=== PATIENT | female | born 1975 | race Caucasian/White ===

== ENCOUNTER 2020-02-24 19:22 | Observation (INO) ==
[2020-02-24] MEDS ORDERED: ONDANSETRON INJ 2 MG/ML 2 ML VIAL IV STA (19:48)
[2020-02-24] MEDS ORDERED: SODIUM CHLORIDE 0.9% 1000ML 1,000 ML IV ONE (19:48)
[2020-02-24] MEDS ORDERED: MoRPHine SULFATE 4 MG/ML 1 ML CARP\\VIAL IV STA (19:48)
[2020-02-24 19:57] LABS: Basophils # (auto) 0.03 K/uL (0-0.2); Basophils % (auto) 0.2 %; Eosinophils # (auto) 0.21 K/uL (0-0.5); Eosinophils % (auto) 1.5 %; Hematocrit (blood only) 37.8 % (37-47); Hemoglobin 11.8 g/dL (12.0-16.0); Immature Granulocytes # (auto) 0.02 K/uL (0.00-0.02); Immature Granulocytes % (auto) 0.1 %; Lymphocytes # (auto) 2.57 K/uL (1.2-3.4); Lymphocytes % (auto) 18.5 %; Mean Corpuscular Hemoglobin 25.1 pg (25-34); Mean Corpuscular Hgb Conc 31.2 g/dL (32-36); Mean Corpuscular Volume 80.3 fL (80-100); Mean Platelet Volume 9.5 fL (7.4-10.4); Monocytes # (auto) 0.67 K/uL (0.11-0.59); Monocytes % (auto) 4.8 %; Neutrophils # (auto) 10.36 K/uL (1.4-6.5); Neutrophils % (auto) 74.9 %; Platelet Count 447 K/uL (130-400); RDW Coefficient of Variation 15.6 % (11.5-14.5); RDW Standard Deviation 45.2 fL (36.4-46.3); Red Blood Count 4.71 M/uL (4.2-5.4); White Blood Count 13.86 K/uL (4.8-10.8)
[2020-02-24 20:18] LABS: Pregnancy Test, Serum Negative (Negative)
[2020-02-24 20:24] LABS: Appearance Urine Clear (Clear); Bilirubin Urine Negative (Negative); Blood Urine Negative (Negative); Color Urine Yellow; Glucose Urine UA Negative (Negative); Ketones Urine Negative (Negative); Leukocyte Esterase Urine Negative (Negative); Nitrite Urine Negative (Negative); Protein Urine Negative (Negative); Specific Gravity Urine 1.015 (1.000-1.030); Urobilinogen Urine Negative (Negative)
[2020-02-24 20:25] LABS: Albumin Level 3.4 gm/dl (3.4-5.0); BUN Creatinine Ratio 17.4 (10-20); Calcium 9.1 mg/dl (8.5-10.1); Creatinine Clr Calc Pharmacy 64.6 ml/min; Est GFR (African American) 84.3; Est GFR (Non-African American) 72.8; Potassium 4.3 mmol/L (3.5-5.1)
[2020-02-24 20:27] LABS: Albumin Globulin Ratio 0.9 (0.9-2); Bilirubin,Total 0.3 mg/dl (0.2-1); Total Protein 7.4 gm/dl (6.4-8.2)
--- NOTE | 2020-02-24 20:41 | CT Scan Report ---
CT OF THE ABDOMEN AND PELVIS WITHOUT CONTRAST CLINICAL HISTORY: Left flank pain. COMPARISON STUDY: CT of the abdomen and pelvis June 19, 2018. TECHNIQUE: Axial images of the abdomen and pelvis were obtained without IV contrast. Images were revi ewed in the axial, sagittal, and coronal planes. Automated exposure control was utilized for the yue dy. A dose lowering technique was utilized adhering to the principles of ALARA. FINDINGS: Lung bases are unremarkable. No renal, ureteral or bladder calculi are present. Pelvic calc ifications likely reflect phleboliths. There is no hydronephrosis or hydroureter. No perinephric infi ltration. Evaluation of the remainder of the abdomen and pelvis suboptimal on this unenhanced exam. T he liver, spleen, adrenal glands and pancreas are unremarkable. There is no biliary or pancreatic margo marilyn dilatation. The appendix is normal. There is no evidence for a bowel obstruction. A moderate amou nt stool within the colon is noted. There is no lymphadenopathy or ascites. There are no suspicious o sseous lesions. The ovaries are not enlarged. Apparent mild infiltration of the labia is unchanged. T his is of doubtful significance. IMPRESSION: 1. No urinary calculi or hydronephrosis. 2. No acute process within the abdomen or pelvis on unenhanced exam. 3. No bowel obstruction. Normal appendix. 4. Moderate amount of stool within the colon. ACT 112: Negative or not required by law. Electronically signed by: Brendan Lux M.D. 02/24/2020 8:39 PM
[2020-02-24] MEDS ORDERED: PROMETHAZINE 25 MG/51 ML BAG IV STA (21:23)
--- NOTE | 2020-02-24 21:30 | Emergency Department Note ---
History of Present Illness General Chief complaint: Flank Pain Stated complaint: LEFT FLANK PAIN Time Seen by Provider: 02/24/20 19:30 History of Present Illness Maximum Pain Intensity: 4 This patient is a 44-year-old female who presents emergency department complaining of a sharp, stabbing sensation in the left flank that started 2 days ago. The pain has been constant. It does not radiate anywhere. It is worse with movement. She has not tried anything [id number] for pain. She does note nausea with several episodes of vomiting today. She does however say that she has had intermittent vomiting over the last 2 months. She saw her primary care physician, who recommended that she come to the emergency department, which she did not do. No changes in bowel movements. No urinary symptoms. Last menstrual cycle was earlier this month. It was reportedly normal. She denies any vaginal discharge. Home Medications Home Medications Medication Instructions Recorded Confirmed Type baclofen 10 mg PO TID PRN 06/19/18 02/24/20 History quetiapine [Seroquel] 200 mg PO QPM 06/19/18 02/24/20 History albuterol sulfate 2 puff INHALATION Q4 PRN 11/19/18 02/24/20 History azelastine 1 spray INTRANASAL BID 11/19/18 02/24/20 History deutetrabenazine [Austedo] 12 mg PO BID 11/19/18 02/24/20 History dextroamphetamine-amphetamine 10 mg PO BID 11/19/18 02/24/20 History [Adderall] ibuprofen 600 mg PO TID PRN 11/19/18 02/24/20 History levocetirizine [Xyzal] 5 mg PO QPM 11/19/18 02/24/20 History levothyroxine [Synthroid] 50 mcg PO DAILY 11/19/18 02/24/20 History lorazepam [Ativan] 0.5 mg PO TID PRN 11/19/18 02/24/20 History ondansetron HCl 4 mg PO TID PRN 11/19/18 02/24/20 History rizatriptan [Maxalt] 10 mg PO UD PRN 11/19/18 02/24/20 History dextroamphetamine-amphetamine 20 mg PO QAM 02/24/20 02/24/20 History [Adderall] lithium carbonate 300 mg PO TID 02/24/20 02/24/20 History pregabalin [Lyrica] 100 mg PO TID 02/24/20 02/24/20 History quetiapine [Seroquel] 50 mg PO DAILY PRN 02/24/20 02/24/20 History Allergies Allergy/AdvReac Type Severity Reaction Status Date / Time No Known Allergies Allergy Verified 02/24/20 20:45 Past Med/Surg History Medical History Asthma Attention deficit disorder Chronic neck pain Tardive dyskinesia Surgical History History of cervical spinal surgery Status post tubal ligation Social History Smoking Status: Former smoker Smoking End Date: 2007; Hx Alcohol Use: No Hx Substance Use: No Preferred Language: Portuguese Communication Ability: Effective Visual Impairment: No Limitations Hearing Ability: Normal Subcontract Administrator Required: No Beliefs That Will Affect Care: None marital status: Current Living Situation: Spouse current occupational status: employed Feels Safe at Home: Yes Safety Concerns: Feels Safe At This Time Assistive Devices: Contacts Review of Systems A total of 10 systems reviewed and were otherwise negative Physical Exam Vital Signs Vital Signs - 24 hr 02/24/20 19:23 02/24/20 21:04 02/24/20 22:03 Temperature 36.4 C L Temperature Source Oral Pulse Rate 97 H Pulse Rate [Right Finger] 82 77 Pulse Rhythm [Right Finger] Pulse Strength [Right Finger] Respiratory Rate 20 16 18 Respiratory Effort / Characteristics Non-Labored Spontaneous Non-Labored Spontaneous Non-Labored Spontaneous Respiratory Depth Normal Normal Normal Respiratory Pattern Regular Regular Blood Pressure 129/87 Blood Pressure [Left Arm] 130/107 H 143/85 H Blood Pressure Mean 101 Blood Pressure Mean [Left Arm] 114 104 Blood Pressure Position [Left Arm] Lying Lying Pulse Oximetry 98 99 100 Oxygen Delivery Method Room Air Room Air Room Air Sepsis New/Unexplained Change in Mental Status N/A Sepsis Action Taken by Nursing No Action Required 02/25/20 00:00 Temperature Temperature Source Pulse Rate Pulse Rate [Right Finger] 95 H Pulse Rhythm [Right Finger] Regular Pulse Strength [Right Finger] Normal Respiratory Rate 18 Respiratory Effort / Characteristics Non-Labored Spontaneous Respiratory Depth Normal Respiratory Pattern Regular Blood Pressure Blood Pressure [Left Arm] 119/74 Blood Pressure Mean Blood Pressure Mean [Left Arm] 89 Blood Pressure Position [Left Arm] Lying Pulse Oximetry 97 Oxygen Delivery Method Room Air Sepsis New/Unexplained Change in Mental Status Sepsis Action Taken by Nursing Constitutional WD/WN, vitals as above Eyes EOM intact bilaterally ENMT external ear and nose normal, oropharynx normal Neck trachea midline Respiratory normal respiratory effort, lungs clear to auscultation Cardiovascular RRR, no murmur, no edema Gastrointestinal (Abdomen) Bowel sounds present in all 4 quadrants. Left-sided CVA tenderness noted. Mild tenderness to palpation in the right upper quadrant. No guarding or rebound tenderness noted. Musculoskeletal no cyanosis or clubbing, extremities motor strength 5/5 Skin no rashes, warm and dry Neurologic Alert and oriented x3. No focal motor deficits. Psychiatric Acting appropriately Course Course Patient was seen and examined Vital signs including blood pressure were reviewed medications list was verified with patient Labs were obtained, and a saline lock was established Medications and imaging were ordered I was notified by the RN that the patient was still having nausea. She was ordered another round of antiemetics. Upon reevaluation, the patient's nausea was better. Unfortunately, her pain was starting to come back. We discussed her results. She voiced understanding. She was ordered more pain medication. She was still having pain. The hospitalist service was consulted for possible inpatient management Consultations Consultation #[facility]: [facility] Administered Medications Amphetamine/Dextroamphetamine (Amphetamine Asp/Sulf/Dextramph 20 Mg Tab) 20 mg PO QAM [facility] Stop: 03/10/20 08:59 Last Admin: 02/25/20 09:26 Dose: 20 mg Documented by: [id number] Dextrose/Lactated Ringer's (D5w And Lactated Ringers) 1,000 mls @ 75 mls/hr IV .[id number] [facility] Stop: 03/26/20 01:20 Last Admin: 02/25/20 01:44 Dose: 75 mls/hr Documented by: [id number] Levothyroxine Sodium (Levothyroxine Sodium 50 Mcg Tablet) 50 mcg PO DAILYBB [facility] Stop: 03/26/20 06:29 Last Admin: 02/25/20 06:02 Dose: Not Given Documented by: [id number] Ventana Carbonate (Ventana Carbonate 300 Mg Tab) 300 mg PO TID [facility] Stop: 03/26/20 08:59 Last Admin: 02/25/20 09:26 Dose: 300 mg Documented by: [id number] Miscellaneous (Azelastine~Order Awaiting Action) 1 ea N/A QS [facility] Stop: 03/26/20 07:59 Last Admin: 02/25/20 09:26 Dose: Not Given Documented by: [id number] Miscellaneous (Austedo~Order Awaiting Action) 1 ea N/A QS [facility] Stop: 03/26/20 07:59 Last Admin: 02/25/20 09:26 Dose: Not Given Documented by: [id number] Miscellaneous (Xyzal~Order Awaiting Action) 1 ea N/A QS [facility] Stop: 03/26/20 07:59 Last Admin: 02/25/20 09:26 Dose: Not Given Documented by: [id number] Oxycodone HCl (Oxycodone Hcl Ir 5 Mg Tab (Immediate Release)) 5 - 10 mg PO QID PRN PRN Reason: Pain Stop: 03/10/20 01:20 Last Admin: 02/25/20 08:10 Dose: 10 mg Documented by: [id number] Pregabalin (Pregabalin 100 Mg Cap) 100 mg PO TID [facility] Stop: 03/26/20 08:59 Last Admin: 02/25/20 09:26 Dose: 100 mg Documented by: [id number] Discontinued Medications Hydromorphone HCl (Hydromorphone Inj 0.5 Mg/0.5 Ml Syr) 0.5 mg IV NOW STA Stop: 02/24/20 23:13 Last Admin: 02/24/20 23:25 Dose: 0.5 mg Documented by: [id number] Sodium Chloride (Nss 1000ml) 1,000 mls @ 999 mls/hr IV .Q1H1M ONE Stop: 02/24/20 20:48 Last Infusion: 02/24/20 21:02 Dose: 0 mls/hr Documented by: [id number] Admin: 02/24/20 20:09 Dose: 999 mls/hr Documented by: [id number] Promethazine HCl (Phenergan) 25 mg in 51 mls @ 204 mls/hr IV NOW STA Stop: 02/24/20 21:37 Last Infusion: 10/13/20 22:14 Dose: 0 mls/hr Documented by: [id number] Admin: 02/24/20 21:57 Dose: 204 mls/hr Documented by: [id number] Ketorolac Tromethamine (Ketorolac Tromethamine 15 Mg/Ml Vial) 15 mg IV NOW STA Stop: 02/25/20 00:35 Last Admin: 02/25/20 01:08 Dose: 15 mg Documented by: [id number] Morphine Sulfate (Morphine Sulfate 4 Mg/Ml 1 Ml Carp\Vial) 4 mg IV NOW STA Stop: 02/24/20 19:49 Last Admin: 02/24/20 20:14 Dose: 4 mg Documented by: [id number] Ondansetron HCl (Ondansetron Inj 2 Mg/Ml 2 Ml Vial) 4 mg IV NOW STA Stop: 02/24/20 19:49 Last Admin: 02/24/20 20:14 Dose: 4 mg Documented by: [id number] Medical Decision Making Medical Records Attestation: I reviewed the patient's medical records. Home Medications Current Medication List: was personally reviewed by me Laboratory Data Attestation: I reviewed the patient's lab results. Result diagrams: 02/25/20 06:48 02/25/20 05:30 Lab Results 02/24/20 02/24/20 02/24/20 Range/Units 19:39 19:39 19:39 WBC 13.86 H (4.8-10.8) K/uL RBC 4.71 (4.2-5.4) M/uL Hgb 11.8 L (12.0-16.0) g/dL Hct 37.8 (37-47) % MCV 80.3 (80-100) fL MCH 25.1 (25-34) pg MCHC 31.2 L (32-36) g/dL RDW Std Deviation 45.2 (36.4-46.3) fL RDW Coeff of Gennaro 15.6 H (11.5-14.5) % Plt Count 447 H (130-400) K/uL MPV 9.5 (7.4-10.4) fL Immature Gran % (Auto) 0.1 % Neut % (Auto) 74.9 % Lymph % (Auto) 18.5 % [place] % (Auto) 4.8 % Eos % (Auto) 1.5 % Baso % (Auto) 0.2 % Neut # (Auto) 10.36 H (1.4-6.5) K/uL Lymph # (Auto) 2.57 (1.2-3.4) K/uL [place] # (Auto) 0.67 H (0.11-0.59) K/uL Eos # (Auto) 0.21 (0-0.5) K/uL Baso # (Auto) 0.03 (0-0.2) K/uL Immature Gran # (Auto) 0.02 (0.00-0.02) K/uL Sodium 139 (136-145) mmol/L Potassium 4.3 (3.5-5.1) mmol/L Chloride 107 (98-107) mmol/L Carbon Dioxide 28 (21-32) mmol/L Anion Gap 4.0 (3-11) BUN 16 (7-18) mg/dl Creatinine 0.94 (0.6-1.2) mg/dl Est Cr Clr Drug Dosing 64.6 ml/min Est GFR ( Amer) 84.3 Est GFR (Non-Af Amer) 72.8 BUN/Creatinine Ratio 17.4 (10-20) Glucose 81 (70-99) mg/dl Calcium 9.1 (8.5-10.1) mg/dl Total Bilirubin 0.3 (0.2-1) mg/dl AST 12 L (15-37) U/L ALT 12 (12-78) U/L Alkaline Phosphatase 69 (45-117) U/L Total Creatine Kinase 52 (26-192) U/L Total Protein 7.4 (6.4-8.2) gm/dl Albumin 3.4 (3.4-5.0) gm/dl Globulin 4.0 (2.5-4.0) gm/dl Albumin/Globulin Ratio 0.9 (0.9-2) Lipase 181 (73-393) U/L TSH 9.300 H (0.300-4.500) uIu/ml HCG, Qual Negative (Negative) Urine Color Urine Appearance (Clear) Urine pH (4.5-7.5) Ur Specific [place] (1.000-1.030) Urine Protein (Negative) Urine Glucose (UA) (Negative) Urine Ketones (Negative) Urine Blood (Negative) Urine Nitrite (Negative) Urine Bilirubin (Negative) Urine Urobilinogen (Negative) Ur Leukocyte Esterase (Negative) 02/24/20 Range/Units 19:39 WBC (4.8-10.8) K/uL RBC (4.2-5.4) M/uL Hgb (12.0-16.0) g/dL Hct (37-47) % MCV (80-100) fL MCH (25-34) pg MCHC (32-36) g/dL RDW Std Deviation (36.4-46.3) fL RDW Coeff of Gennaro (11.5-14.5) % Plt Count (130-400) K/uL MPV (7.4-10.4) fL Immature Gran % (Auto) % Neut % (Auto) % Lymph % (Auto) % [place] % (Auto) % Eos % (Auto) % Baso % (Auto) % Neut # (Auto) (1.4-6.5) K/uL Lymph # (Auto) (1.2-3.4) K/uL [place] # (Auto) (0.11-0.59) K/uL Eos # (Auto) (0-0.5) K/uL Baso # (Auto) (0-0.2) K/uL Immature Gran # (Auto) (0.00-0.02) K/uL Sodium (136-145) mmol/L Potassium (3.5-5.1) mmol/L Chloride (98-107) mmol/L Carbon Dioxide (21-32) mmol/L Anion Gap (3-11) BUN (7-18) mg/dl Creatinine (0.6-1.2) mg/dl Est Cr Clr Drug Dosing ml/min Est GFR ( Amer) Est GFR (Non-Af Amer) BUN/Creatinine Ratio (10-20) Glucose (70-99) mg/dl Calcium (8.5-10.1) mg/dl Total Bilirubin (0.2-1) mg/dl AST (15-37) U/L ALT (12-78) U/L Alkaline Phosphatase (45-117) U/L Total Creatine Kinase (26-192) U/L Total Protein (6.4-8.2) gm/dl Albumin (3.4-5.0) gm/dl Globulin (2.5-4.0) gm/dl Albumin/Globulin Ratio (0.9-2) Lipase (73-393) U/L TSH (0.300-4.500) uIu/ml HCG, Qual (Negative) Urine Color Yellow Urine Appearance Clear (Clear) Urine pH 8.0 H (4.5-7.5) Ur Specific [place] 1.015 (1.000-1.030) Urine Protein Negative (Negative) Urine Glucose (UA) Negative (Negative) Urine Ketones Negative (Negative) Urine Blood Negative (Negative) Urine Nitrite Negative (Negative) Urine Bilirubin Negative (Negative) Urine Urobilinogen Negative (Negative) Ur Leukocyte Esterase Negative (Negative) Imaging Data Attestation: I personally reviewed and interpreted this imaging study as follows: Radiologist's Impression: CT abdomen and pelvis without contrast IMPRESSION: 1. No urinary calculi or hydronephrosis. 2. No acute process within the abdomen or pelvis on unenhanced exam. 3. No bowel obstruction. Normal appendix. 4. Moderate amount of stool within the colon. ACT 112: Negative or not required by law. Electronically signed by: Brendan Lux M.D. 02/24/2020 8:39 PM Dictated: 02/24/202033 Transcribed: 02/24/202033 Ultrasound gallbladder Per stat rad preliminary findings: Mild gallbladder sludge. No definite gallstones. No gallbladder wall thickening or pericholecystic fluid. No sonographic Tubbs sign. Common bile duct measures 4 mm. The right kidney is unremarkable. No hydronephrosis. MDM Narrative Differential diagnosis: Ureteral stone, UTI, pyelonephritis, musculoskeletal pain, gallbladder pathology, bowel obstruction, pancreatitis, gastritis, ovarian cyst, ectopic , among others were considered This pt is a 44 y/o female that presents to the ED with flank pain, abdominal pain, nausea and vomiting. On exam, VSS. She had L flank tenderness and also some RUQ tenderness. She has been having on and off nausea after eating for a few weeks. Labs show mild leukocytosis. LFTs and lipase normal. CT of the abdomen/pelvis was performed to rule out uretal stone and pylenephritis. No acute findings. US of the gallbladder also performed. Preliminary read shows sludge, but no stones or signs of cholecystitis. I was not able to adequately control the patient's pain after multiple doses of narcotics, which prompted hospitalist consult for further evaluation. Impression & Plan Flank Pain, RUQ pain, Vomiting Discharge Plan Visit Data Chief Complaint: Flank Pain Stated Complaint: LEFT FLANK PAIN ED Provider: Adryan Maurer ED Midlevel Provider: Barbara Bruce Discharge Problem: Flank Pain, RUQ pain, Vomiting Patient Disposition: Admitted As Inpatient Discharge Instructions Interventions: ED Discharge Assessment Last Done: 02/25/20 01:04
[2020-02-24] MEDS ORDERED: HYDROmorphone INJ 0.5 MG/0.5 ML SYR IV STA (23:12)
--- NOTE | 2020-02-25 00:30 | History & Physical Report ---
Date of Service February 25, 2020 Assessment & Plan (1) RUQ pain: Persistent discomfort the last 2 weeks Possible biliary colic No sepsis for now New onset left flank pain Possible muscular strain mood disorder, at baseline hypothyroidism, TSH slightly elevated tardive dyskinesia as per records chronic anemia, hemoglobin at baseline past tobacco abuse OBS GMF Analgesia General Surgery consult RE RUQ pain possible biliary colic N.p.o. until patient seen by surgery in a.m. DVT prophylaxis. SCDs RE possible procedure Full code Patient's requesting update providers. Mr. Fermín Durán, contact #[phone]. Text document was generated using [employer] voice recognition software. It may contain grammatical or spelling errors. Kindly contact undersigned for clarification of any documentation item in question. History of Present Illness Chief Complaint: Left flank pain Primary Care Provider: Bean Rivera History obtained from patient, family, and records. Medical history significant for mood disorder, hypothyroidism, unspecified convulsions, tardive dyskinesia, hyperlipidemia as per records, chronic anemia (baseline globin 10-11), past tobacco abuse. Last confinement 2012 under [facility] for elective neck surgery. 2 weeks history of achy right upper quadrant pain symptoms associated with emesis worse with meals, No chest pain, no S OB. No fever, no chills. PCP recommended ER consultation given concern for cholecystitis but patient held off. Intermittent discomfort the last 2 weeks. 2 days ago patient noted aching left flank pain symptoms. No recollection of recent trauma. Persistent right upper quadrant pain. Patient brought to ER for evaluation by . Medical History as above Surgical History : Left shoulder surgery, neck surgery, hysteroscopy, BTL, nerve decompression, oophorectomy Family History : Heart disease, mood disorder, alcoholism Personal/Social history : Past tobacco abuse, no EtOH intake, homemaker Allergies Allergy/AdvReac Type Severity Reaction Status Date / Time No Known Allergies Allergy Verified 02/24/20 20:45 Home Medications Home Medications Medication Instructions Recorded Confirmed Type baclofen 10 mg PO TID PRN 06/19/18 02/24/20 History quetiapine [Seroquel] 200 mg PO QPM 06/19/18 02/24/20 History albuterol sulfate 2 puff INHALATION Q4 PRN 11/19/18 02/24/20 History azelastine 1 spray INTRANASAL BID 11/19/18 02/24/20 History deutetrabenazine [Austedo] 12 mg PO BID 11/19/18 02/24/20 History dextroamphetamine-amphetamine 10 mg PO BID 11/19/18 02/24/20 History [Adderall] ibuprofen 600 mg PO TID PRN 11/19/18 02/24/20 History levocetirizine [Xyzal] 5 mg PO QPM 11/19/18 02/24/20 History levothyroxine [Synthroid] 50 mcg PO DAILY 11/19/18 02/24/20 History lorazepam [Ativan] 0.5 mg PO TID PRN 11/19/18 02/24/20 History ondansetron HCl 4 mg PO TID PRN 11/19/18 02/24/20 History rizatriptan [Maxalt] 10 mg PO UD PRN 11/19/18 02/24/20 History dextroamphetamine-amphetamine 20 mg PO QAM 02/24/20 02/24/20 History [Adderall] lithium carbonate 300 mg PO TID 02/24/20 02/24/20 History pregabalin [Lyrica] 100 mg PO TID 02/24/20 02/24/20 History quetiapine [Seroquel] 50 mg PO DAILY PRN 02/24/20 02/24/20 History Past Med/Surg History Medical History Asthma Attention deficit disorder Chronic neck pain Tardive dyskinesia Surgical History History of cervical spinal surgery Status post tubal ligation Social History Smoking Status: Former smoker Smoking End Date: 2007; Hx Alcohol Use: No Hx Substance Use: No Preferred Language: Albanian Communication Ability: Effective Visual Impairment: No Limitations Hearing Ability: Normal Manager Of Compensation Required: No Beliefs That Will Affect Care: None marital status: Current Living Situation: Spouse current occupational status: employed Feels Safe at Home: Yes Safety Concerns: Feels Safe At This Time Assistive Devices: Contacts Review of Systems Review of Systems: As per HPI, all 10 systems reviewed, all other ROS negative Physical Exam Physical Exam: GENERAL: uncomfortable, restless, involuntary truncal movements, no respiratory distress SKIN: Pallor , warm HEENT: Pale palpebral conjunctivae, no ptosis, dry buccal mucosa NECK : Supple, no tenderness CHEST : CTA, no tenderness HEART : RRR, no obvious murmurs ABDOMEN: Some distention, right upper quadrant tenderness BACK : Left flank tenderness EXTREMITIES : No LE swelling/tenderness, no other conspicuous deformities noted NEUROLOGIC : Coherent, no facial asymmetry, involuntary truncal movements, no other gross focality Results & Data Results & Data ([facility]) Vital Signs (Past 12 Hours) Vital Signs Temp Pulse Pulse Resp BP BP Pulse Ox 02/24/20 22:03 77 18 143/85 H 100 02/24/20 21:04 82 16 130/107 H 99 02/24/20 19:23 36.4 C L 97 H 20 129/87 98 Laboratory Results Laboratory Results WBC 13.86 K/uL (4.8-10.8) H 02/24/20 19:39 RBC 4.71 M/uL (4.2-5.4) 02/24/20 19:39 Hgb 11.8 g/dL (12.0-16.0) L 02/24/20 19:39 Hct 37.8 % (37-47) 02/24/20 19:39 MCV 80.3 fL (80-100) 02/24/20 19:39 MCH 25.1 pg (25-34) 02/24/20 19:39 MCHC 31.2 g/dL (32-36) L 02/24/20 19:39 RDW Std Deviation 45.2 fL (36.4-46.3) 02/24/20 19:39 RDW Coeff of Gennaro 15.6 % (11.5-14.5) H 02/24/20 19:39 Plt Count 447 K/uL (130-400) H 02/24/20 19:39 MPV 9.5 fL (7.4-10.4) 02/24/20 19:39 Immature Gran % (Auto) 0.1 % 02/24/20 19:39 Neut % (Auto) 74.9 % 02/24/20 19:39 Lymph % (Auto) 18.5 % 02/24/20 19:39 [place] % (Auto) 4.8 % 02/24/20 19:39 Eos % (Auto) 1.5 % 02/24/20 19:39 Baso % (Auto) 0.2 % 02/24/20 19:39 Neut # (Auto) 10.36 K/uL (1.4-6.5) H 02/24/20 19:39 Lymph # (Auto) 2.57 K/uL (1.2-3.4) 02/24/20 19:39 [place] # (Auto) 0.67 K/uL (0.11-0.59) H 02/24/20 19:39 Eos # (Auto) 0.21 K/uL (0-0.5) 02/24/20 19:39 Baso # (Auto) 0.03 K/uL (0-0.2) 02/24/20 19:39 Immature Gran # (Auto) 0.02 K/uL (0.00-0.02) 02/24/20 19:39 Sodium 139 mmol/L (136-145) 02/24/20 19:39 Potassium 4.3 mmol/L (3.5-5.1) 02/24/20 19:39 Chloride 107 mmol/L (98-107) 02/24/20 19:39 Carbon Dioxide 28 mmol/L (21-32) 02/24/20 19:39 Anion Gap 4.0 (3-11) 02/24/20 19:39 BUN 16 mg/dl (7-18) 02/24/20 19:39 Creatinine 0.94 mg/dl (0.6-1.2) 02/24/20 19:39 Est Cr Clr Drug Dosing 64.6 ml/min 02/24/20 19:39 Est GFR ( Amer) 84.3 02/24/20 19:39 Est GFR (Non-Af Amer) 72.8 02/24/20 19:39 BUN/Creatinine Ratio 17.4 (10-20) 02/24/20 19:39 Glucose 81 mg/dl (70-99) 02/24/20 19:39 Calcium 9.1 mg/dl (8.5-10.1) 02/24/20 19:39 Total Bilirubin 0.3 mg/dl (0.2-1) 02/24/20 19:39 AST 12 U/L (15-37) L 02/24/20 19:39 ALT 12 U/L (12-78) 02/24/20 19:39 Alkaline Phosphatase 69 U/L (45-117) 02/24/20 19:39 Total Protein 7.4 gm/dl (6.4-8.2) 02/24/20 19:39 Albumin 3.4 gm/dl (3.4-5.0) 02/24/20 19:39 Globulin 4.0 gm/dl (2.5-4.0) 02/24/20 19:39 Albumin/Globulin Ratio 0.9 (0.9-2) 02/24/20 19:39 Lipase 181 U/L (73-393) 02/24/20 19:39 HCG, Qual Negative (Negative) 02/24/20 19:39 Urine Color Yellow 02/24/20 19:39 Urine Appearance Clear (Clear) 02/24/20 19:39 Urine pH 8.0 (4.5-7.5) H 02/24/20 19:39 Ur Specific [place] 1.015 (1.000-1.030) 02/24/20 19:39 Urine Protein Negative (Negative) 02/24/20 19:39 Urine Glucose (UA) Negative (Negative) 02/24/20 19:39 Urine Ketones Negative (Negative) 02/24/20 19:39 Urine Blood Negative (Negative) 02/24/20 19:39 Urine Nitrite Negative (Negative) 02/24/20 19:39 Urine Bilirubin Negative (Negative) 02/24/20 19:39 Urine Urobilinogen Negative (Negative) 02/24/20 19:39 Ur Leukocyte Esterase Negative (Negative) 02/24/20 19:[address] abdomen pelvis: 1. No urinary calculi or hydronephrosis. 2. No acute process within the abdomen or pelvis on unenhanced exam. 3. No bowel obstruction. Normal appendix. 4. Moderate amount of stool within the colon. Ultrasound gallbladder initial read: Mild gallbladder sludge. No definite gallstones. No gallbladder wall thickening or pericholecystic fluid. No sonographic Tubbs sign. CBD measuring 4 mm.
[2020-02-25] MEDS ORDERED: KETOROLAC TROMETHAMINE 15 MG/ML VIAL IV STA (00:34)
[2020-02-25 00:55] LABS: Thyroid Stimulating Hormone 9.3 uIu/ml (0.300-4.500)
[2020-02-25] MEDS ORDERED: MoRPHine SULFATE 4 MG/ML 1 ML CARP\\VIAL IV PRN (01:21)
[2020-02-25] MEDS ORDERED: LORazepam 0.5 MG/1 ML VIAL IV PRN (01:21)
[2020-02-25] MEDS ORDERED: PROMETHAZINE HCL 12.5 MG in SODIUM CHLORIDE 0.9% 50 ML IV PRN (01:21)
[2020-02-25] MEDS ORDERED: ACETAMINOPHEN 325 MG TAB PO PRN (01:21)
[2020-02-25] MEDS ORDERED: QUEtiapine FUMARATE 25 MG TABLET PO PRN (01:21)
[2020-02-25] MEDS ORDERED: KETOROLAC TROMETHAMINE 15 MG/ML VIAL IV PRN (01:21)
[2020-02-25] MEDS ORDERED: BACLOFEN 10 MG TAB PO PRN (01:21)
[2020-02-25] MEDS ORDERED: LORazepam 1 MG TAB PO PRN (01:31)
[2020-02-25] MEDS: D5W AND LACTATED RINGERS 1,000 ML IV SCH ×2 (01:44→14:02)
[2020-02-25] MEDS: LEVOTHYROXINE SODIUM 50 MCG TABLET PO SCH (06:02)
[2020-02-25 06:22] LABS: Albumin Level 2.7 gm/dl (3.4-5.0); BUN Creatinine Ratio 19.7 (10-20); Calcium 8.1 mg/dl (8.5-10.1); Creatinine Clr Calc Pharmacy 80.1 ml/min; Est GFR (African American) 92.6; Est GFR (Non-African American) 79.9
[2020-02-25 06:34] LABS: Albumin Globulin Ratio 0.8 (0.9-2); Bilirubin,Total 0.4 mg/dl (0.2-1); Globulin 3.2 gm/dl (2.5-4.0); Total Protein 5.9 gm/dl (6.4-8.2)
[2020-02-25 07:01] LABS: Basophils # (auto) 0.02 K/uL (0-0.2); Basophils % (auto) 0.2 %; Eosinophils % (auto) 2.3 %; Hematocrit (blood only) 35.2 % (37-47); Hemoglobin 10.7 g/dL (12.0-16.0); Immature Granulocytes # (auto) 0.02 K/uL (0.00-0.02); Immature Granulocytes % (auto) 0.2 %; Lymphocytes # (auto) 1.59 K/uL (1.2-3.4); Lymphocytes % (auto) 12.4 %; Mean Corpuscular Hemoglobin 24.5 pg (25-34); Mean Corpuscular Volume 80.5 fL (80-100); Monocytes # (auto) 0.93 K/uL (0.11-0.59); Monocytes % (auto) 7.2 %; Neutrophils # (auto) 9.99 K/uL (1.4-6.5); Neutrophils % (auto) 77.7 %; Platelet Count 341 K/uL (130-400); RDW Coefficient of Variation 15.5 % (11.5-14.5); RDW Standard Deviation 46.1 fL (36.4-46.3); Red Blood Count 4.37 M/uL (4.2-5.4); White Blood Count 12.85 K/uL (4.8-10.8)
[2020-02-25 07:04] LABS: Mean Corpuscular Hgb Conc 30.4 g/dL (32-36)
--- NOTE | 2020-02-25 07:42 | Ultrasound Report ---
ULTRASOUND RIGHT UPPER QUADRANT ABDOMEN CLINICAL HISTORY: Vomiting. COMPARISON STUDY: Abdominal CT dated 02/24/2020. TECHNIQUE: Real-time, grayscale, and color flow sonography of the right upper quadrant of the abdomen was performed. Images are reviewed in the transverse and longitudinal planes. FINDINGS: Liver: The liver is normal in size and echotexture. There is no intrahepatic biliary ductal dilatatio n. The main portal vein is patent. Gallbladder: The gallbladder is normal in appearance. No gallstones are identified. There is no gallb ladder wall thickening or pericholecystic fluid. A sonographic Tubbs's sign is reportedly absent. Th e common bile duct measures up to 0.4 cm in diameter. Pancreas: Visualized portions of the pancreatic head and body are normal in appearance. The splenic v ein is patent. Right kidney: Survey images of the right kidney demonstrate normal size and echotexture. There is no hydronephrosis. Ascites: None. IMPRESSION: Unremarkable sonographic assessment of the right upper quadrant. No gallstones are identi fied. ACT 112: Negative or not required by law. Electronically signed by: Lonnie Paige M.D. 02/25/2020 7:41 AM
[2020-02-25] MEDS ORDERED: AUSTEDO~ORDER AWAITING ACTION SCH (08:00)
[2020-02-25] MEDS: oxyCODONE HCL IR 5 MG TAB (IMMEDIATE RELEASE) PO PRN ×3 (08:10→19:52)
[2020-02-25] MEDS: XYZAL~ORDER AWAITING ACTION SCH ×3 (09:26→21:53)
[2020-02-25] MEDS: AZELASTINE~ORDER AWAITING ACTION SCH ×3 (09:26→21:53)
[2020-02-25] MEDS: PREGABALIN 100 MG CAP PO SCH ×3 (09:26→21:13)
[2020-02-25] MEDS: AMPHETAMINE ASP/SULF/DEXTRAMPH 20 MG TAB PO SCH (09:26)
[2020-02-25] MEDS: LITHIUM CARBONATE 300 MG TAB PO SCH ×3 (09:26→21:13)
--- NOTE | 2020-02-25 11:27 | Surgery Consultation ---
Date of Consultation February 25, 2020 Assessment & Plan (1) Flank Pain: majority of acute pain is left flank, agree with urinary work up chronic abdominal pain with normal CT and normal US; constipation may be etiology HIDA scan could also be done as outpatient to r/o malfunctioning gallbladder no acute surgical issues History of Present Illness Attending Physician: Julianna Jennings MD History of Present Illness This patient is a 44-year-old female who presented to ED complaining of a sharp, stabbing sensation in the left flank that started 2 days ago, she has also had chronic upper abdominal pain with some nausea and vomiting. The left pain has been constant. It does not radiate anywhere. It is worse with movement. She does note nausea with several episodes of vomiting today. She does however say that she has had intermittent vomiting over the last 2 months. No changes in bowel movements. No urinary symptoms. Last menstrual cycle was earlier this month. Allergies Allergy/AdvReac Type Severity Reaction Status Date / Time No Known Allergies Allergy Verified 02/24/20 20:45 Home Medications Home Medications Medication Instructions Recorded Confirmed Type baclofen 10 mg PO TID PRN 06/19/18 02/24/20 History quetiapine [Seroquel] 200 mg PO QPM 06/19/18 02/24/20 History albuterol sulfate 2 puff INHALATION Q4 PRN 11/19/18 02/24/20 History azelastine 1 spray INTRANASAL BID 11/19/18 02/24/20 History deutetrabenazine [Austedo] 12 mg PO BID 11/19/18 02/24/20 History dextroamphetamine-amphetamine 10 mg PO BID 11/19/18 02/24/20 History [Adderall] ibuprofen 600 mg PO TID PRN 11/19/18 02/24/20 History levocetirizine [Xyzal] 5 mg PO QPM 11/19/18 02/24/20 History levothyroxine [Synthroid] 50 mcg PO DAILY 11/19/18 02/24/20 History lorazepam [Ativan] 0.5 mg PO TID PRN 11/19/18 02/24/20 History ondansetron HCl 4 mg PO TID PRN 11/19/18 02/24/20 History rizatriptan [Maxalt] 10 mg PO UD PRN 11/19/18 02/24/20 History dextroamphetamine-amphetamine 20 mg PO QAM 02/24/20 02/24/20 History [Adderall] lithium carbonate 300 mg PO TID 02/24/20 02/24/20 History pregabalin [Lyrica] 100 mg PO TID 02/24/20 02/24/20 History quetiapine [Seroquel] 50 mg PO DAILY PRN 02/24/20 02/24/20 History Patient History Medical History Asthma Attention deficit disorder Chronic neck pain Tardive dyskinesia Surgical History History of cervical spinal surgery Status post tubal ligation Social History Smoking Status: Former smoker Smoking End Date: 2007; Hx Alcohol Use: No Hx Substance Use: No Preferred Language: Maltese Communication Ability: Effective Visual Impairment: No Limitations Hearing Ability: Normal Director Of Respiratory Therapy Required: No Beliefs That Will Affect Care: None marital status: Current Living Situation: Spouse current occupational status: employed Feels Safe at Home: Yes Safety Concerns: Feels Safe At This Time Assistive Devices: Contacts Review of Systems Constitutional: no fever, no chills and no anorexia Respiratory: no cough and no dyspnea Cardiovascular: no chest pain, no chest pain at rest and no chest pain with activity Gastrointestinal: + abdominal pain, + nausea and + vomiting; no change in bowel habits Genitourinary: + dysuria Musculoskeletal: no back pain Integumentary: no rash and no lesions Neurologic: no localized weakness and no generalized weakness Psychiatric: no behavioral changes Physical Exam Constitutional: WD/WN, vitals as above Neck: trachea midline Respiratory: normal respiratory effort, lungs clear to auscultation Cardiovascular: RRR, no murmur, no edema Gastrointestinal (Abdomen): Inspection/Auscultation: abdomen normal to inspection and normal bowel sounds; abdomen not distended Percussion/Palpation: + abdomen tender (mild epigastric) and abdomen soft; abdomen not rigid, no hernia and no abdominal mass Musculoskeletal: Head/Neck/Chest: normocephalic Skin: no rashes, warm and dry Psychiatric: Orientation: alert and oriented x 3 Results & Data ([facility]) Vital Signs (Past 12 Hours) Vital Signs Temp Pulse Resp BP Pulse Ox 02/25/20 07:07 36.7 C 77 16 95/61 L 98 02/25/20 01:21 36.6 C 96 H 20 120/81 99 02/25/20 00:00 95 H 18 119/74 97 Diagnostic Findings ULTRASOUND RIGHT UPPER QUADRANT ABDOMEN CLINICAL HISTORY: Vomiting. COMPARISON STUDY: Abdominal CT dated 02/24/2020. TECHNIQUE: Real-time, grayscale, and color flow sonography of the right upper quadrant of the abdomen was performed. Images are reviewed in the transverse and longitudinal planes. FINDINGS: Liver: The liver is normal in size and echotexture. There is no intrahepatic biliary ductal dilatation. The main portal vein is patent. Gallbladder: The gallbladder is normal in appearance. No gallstones are identified. There is no gallbladder wall thickening or pericholecystic fluid. A sonographic Tubbs's sign is reportedly absent. The common bile duct measures up to 0.4 cm in diameter. Pancreas: Visualized portions of the pancreatic head and body are normal in appearance. The splenic vein is patent. Right kidney: Survey images of the right kidney demonstrate normal size and echotexture. There is no hydronephrosis. Ascites: None. IMPRESSION: Unremarkable sonographic assessment of the right upper quadrant. No gallstones are identified. CT OF THE ABDOMEN AND PELVIS WITHOUT CONTRAST CLINICAL HISTORY: Left flank pain. COMPARISON STUDY: CT of the abdomen and pelvis June 19, 2018. TECHNIQUE: Axial images of the abdomen and pelvis were obtained without IV con trast. Images were reviewed in the axial, sagittal, and coronal planes. Automated exposure control was utilized for the study. A dose lowering technique was utilized adhering to the principles of ALARA. FINDINGS: Lung bases are unremarkable. No renal, ureteral or bladder calculi are present. Pelvic calcifications likely reflect phleboliths. There is no hydronephrosis or hydroureter. No perinephric infiltration. Evaluation of the remainder of the abdomen and pelvis suboptimal on this unenhanced exam. The liver, spleen, adrenal glands and pancreas are unremarkable. There is no biliary or pancreatic ductal dilatation. The appendix is normal. There is no evidence for a bowel obstruction. A moderate amount stool within the colon is noted. There is no lymphadenopathy or ascites. There are no suspicious osseous lesions. The ovaries are not enlarged. Apparent mild infiltration of the labia is unchanged. This is of doubtful significance. IMPRESSION: 1. No urinary calculi or hydronephrosis. 2. No acute process within the abdomen or pelvis on unenhanced exam. 3. No bowel obstruction. Normal appendix. 4. Moderate amount of stool within the colon
[2020-02-25] MEDS: AMPHETAMINE ASP/SULF/DEXTRAMPH 10 MG TAB PO SCH ×2 (12:27→16:48)
[2020-02-25] MEDS: AUSTEDO PO SCH ×2 (14:02→21:14)
[2020-02-25] MEDS ORDERED: RIZATRIPTAN BENZOATE 10 MG TAB PO STA (20:33)
[2020-02-25] MEDS: QUEtiapine FUMARATE 200 MG TAB PO SCH (21:14)
--- NOTE | 2020-02-25 22:47 | Hospitalist Progress Note ---
Date of Service February 25, 2020 Assessment & Plan (1) Abdominal pain: hx of chronic nausea /vomiting for months -cyclic vomiting syndrome ? worsening of symptoms in past few days associated with abdominal pain CT abdomen /pelvis : no acute pathology GI symptoms resolved with bowel rest , IV fluid appreciate surgery input diet advanced, did very well -no N/v with meals ordered for bowel regimen as pt complains of chronic constipation Admission and Anticipated Discharge Date Admission Date: February 25, 2020 Subjective abdominal pain has improved no nausea or vomiting still very constipated /no complain of RUQ , has persistent aching on left flank area Review of Systems Review of Systems: All systems reviewed & are unremarkable except as noted in HPI & below Physical Exam Constitutional: WD/WN, vitals as above Eyes: PERRL, conjunctivae normal, anicteric sclerae ENMT: external ear and nose normal, oropharynx normal Neck: trachea midline, no thyromegaly Respiratory: normal respiratory effort, lungs clear to auscultation Cardiovascular: RRR, no murmur, no edema Gastrointestinal (Abdomen): normal bowel sounds, soft, nontender, no hepatosplenomegaly Musculoskeletal: no cyanosis or clubbing, extremities motor strength 5/5 Neurologic: PERRL, EOMI, accommodation nl, no face palsy, no dysarthria Psychiatric: A+Ox3, euthymic affect Results & Data Results & Data ([facility]) Vital Signs (Past 12 Hours) Vital Signs Temp Pulse Resp BP Pulse Ox 02/25/20 15:12 36.8 C 88 16 111/72 96
[2020-02-26] MEDS: LEVOTHYROXINE SODIUM 50 MCG TABLET PO SCH (05:42)
[2020-02-26 06:11] LABS: Hematocrit (blood only) 36.3 % (37-47); Hemoglobin 10.9 g/dL (12.0-16.0); Mean Corpuscular Hemoglobin 24.4 pg (25-34); Mean Corpuscular Volume 81.2 fL (80-100); Mean Platelet Volume 9.9 fL (7.4-10.4); Platelet Count 352 K/uL (130-400); RDW Coefficient of Variation 15.6 % (11.5-14.5); RDW Standard Deviation 45.7 fL (36.4-46.3); Red Blood Count 4.47 M/uL (4.2-5.4); White Blood Count 7.55 K/uL (4.8-10.8)
[2020-02-26] MEDS: LITHIUM CARBONATE 300 MG TAB PO SCH ×3 (09:28→20:14)
[2020-02-26] MEDS: AUSTEDO PO SCH ×2 (09:28→20:13)
[2020-02-26] MEDS: AZELASTINE~ORDER AWAITING ACTION SCH ×3 (09:29→23:53)
[2020-02-26] MEDS: XYZAL~ORDER AWAITING ACTION SCH ×3 (09:29→23:53)
[2020-02-26] MEDS: POLYETHYLENE (MIRALAX) 17 GM PACK PO SCH ×4 (09:29→20:14)
[2020-02-26] MEDS: oxyCODONE HCL IR 5 MG TAB (IMMEDIATE RELEASE) PO PRN ×3 (09:36→20:24)
[2020-02-26] MEDS: PREGABALIN 100 MG CAP PO SCH ×3 (09:37→20:26)
[2020-02-26] MEDS: AMPHETAMINE ASP/SULF/DEXTRAMPH 20 MG TAB PO SCH (09:37)
[2020-02-26] MEDS: AMPHETAMINE ASP/SULF/DEXTRAMPH 10 MG TAB PO SCH ×2 (12:36→15:38)
[2020-02-26] MEDS ORDERED: bisacodyL 5 MG TABEC PO ONE (15:28)
[2020-02-26] MEDS ORDERED: oxyCODONE HCL IR 5 MG TAB (IMMEDIATE RELEASE) PO PRN (15:28)
--- NOTE | 2020-02-26 15:42 | Hospitalist Progress Note ---
Date of Service February 26, 2020 Assessment & Plan (1) Abdominal pain: hx of chronic nausea /vomiting for months -cyclic vomiting syndrome worsening of symptoms acutely for past few days -possible viral gastroenteritis GI symptoms has resolved tolerating diet CT abdomen /pelvis : no acute pathology chronic Constipation : possible contributed to abdominal pain ordered for bowel regimen will d/c narcotic pain meds Left flank pain : no evidence of kidney stone on CT abdomen possible muskuloskeletal cold compression increase activity as tolerated bowel regimen as above plan to discharge home later today , if back /flank pain improves Admission and Anticipated Discharge Date Admission Date: February 25, 2020 Subjective no complain of abdominal pain , no nausea or vomiting tolerating diet well complains of left flank , upper back pain , unchanged from prior no bowel movement yet - Physical Exam Constitutional: WD/WN, vitals as above Eyes: PERRL, conjunctivae normal, anicteric sclerae ENMT: external ear and nose normal, oropharynx normal Neck: trachea midline, no thyromegaly Respiratory: normal respiratory effort, lungs clear to auscultation Cardiovascular: RRR, no murmur, no edema Gastrointestinal (Abdomen): Inspection/Auscultation: normal bowel sounds Percussion/Palpation: + abdomen tender (left flank pain ) and abdomen soft Musculoskeletal: no cyanosis or clubbing, extremities motor strength 5/5 Neurologic: PERRL, EOMI, accommodation nl, no face palsy, no dysarthria Psychiatric: A+Ox3, euthymic affect Results & Data Results & Data ([facility]) Vital Signs (Past 12 Hours) Vital Signs Temp Pulse Resp BP Pulse Ox 02/26/20 15:22 36.7 C 85 18 107/65 98 02/26/20 07:26 36.9 C 76 18 99/56 L 96
[2020-02-26] MEDS ORDERED: ACETAMINOPHEN 325 MG TAB PO PRN (16:01)
--- NOTE | 2020-02-26 16:07 | Communication Note ---
Date of Service: February 26, 2020 Attending note : Oxycodon PRN was D/kyleigh as it possibly causing worsening of constipation counseling provided : for chronic muscle pain , without any underlying organic cause ( normal CT abdomen ) -utlizing narcotics for pain control will not beneficial -risk for dependency /bowel illeus etc scheduled Tylenol and toradol IV prn ordered pt became very upset ,crying -as her pain is so severe only oxycodon helping PRN oxycodon ordered for overnight continue bowel regimen pain management consulted Julianna Jennings MD
[2020-02-26] MEDS ORDERED: ONDANSETRON INJ 2 MG/ML 2 ML VIAL IV PRN (18:50)
[2020-02-26] MEDS: QUEtiapine FUMARATE 200 MG TAB PO SCH (20:15)
[2020-02-26] MEDS ORDERED: ACETAMINOPHEN 500 MG TAB PO SCH (22:00)
[2020-02-27] MEDS: LEVOTHYROXINE SODIUM 50 MCG TABLET PO SCH (05:59)
[2020-02-27] MEDS: oxyCODONE HCL IR 5 MG TAB (IMMEDIATE RELEASE) PO PRN (08:30)
[2020-02-27] MEDS: LITHIUM CARBONATE 300 MG TAB PO SCH ×2 (08:31→14:00)
[2020-02-27] MEDS: AUSTEDO PO SCH (08:31)
[2020-02-27] MEDS: AZELASTINE~ORDER AWAITING ACTION SCH (08:31)
[2020-02-27] MEDS: XYZAL~ORDER AWAITING ACTION SCH (08:32)
[2020-02-27] MEDS ORDERED: oxyCODONE HCL IR 5 MG TAB (IMMEDIATE RELEASE) PO PRN (08:50)
--- NOTE | 2020-02-27 08:54 | Pain Management Consultation ---
Date of Consultation February 27, 2020 Assessment & Plan (1) Flank Pain: * Pain appears mostly muscular in nature. Baclofen 10mg will be switched from PRN to scheduled. * Lidocaine patch ordered. * I emphasized the importance to eliminate opioids. Oxycodone frequency switched to x 12 hours PRN. * She would benefit from physical therapy. * Thank you for the consultation. History of Present Illness Attending Physician: Julianna Jennings MD History of Present Illness Mrs. High is a 44 year old female that has both right upper quadrant abdominal pain and left flank pain. The right upper quadrant abdominal pain has been ongoing for about 2 months and associated with nausea and vomiting. She states that the right upper abdominal pain is very mild and her predominant complaint at this time is located in the left flank. Over the past 4 or 5 days she has been experiencing significant left flank pain. No trauma. She did have a long car ride which did significantly aggravate the pain. No radicular symptoms. The pain is located along the left low back. She is currently taking Toradol IV, and Oxycodone PO for pain relief. The oxycodone is providing ad equate pain relief. Patient does have chronic constipation that has been worse wince tasking Oxycodone. Yesterday she became upset that the Oxycodone was discontinued because her pain was no longer controlled. Pain Assessment Full Body Front + Back: 1. Allergies Allergy/AdvReac Type Severity Reaction Status Date / Time No Known Allergies Allergy Verified 02/24/20 20:45 Home Medications Home Medications Medication Instructions Recorded Confirmed Type baclofen 10 mg PO TID PRN 06/19/18 02/24/20 History quetiapine [Seroquel] 200 mg PO QPM 06/19/18 02/24/20 History albuterol sulfate 2 puff INHALATION Q4 PRN 11/19/18 02/24/20 History azelastine 1 spray INTRANASAL BID 11/19/18 02/24/20 History deutetrabenazine [Austedo] 12 mg PO BID 11/19/18 02/24/20 History dextroamphetamine-amphetamine 10 mg PO BID 11/19/18 02/24/20 History [Adderall] ibuprofen 600 mg PO TID PRN 11/19/18 02/24/20 History levocetirizine [Xyzal] 5 mg PO QPM 11/19/18 02/24/20 History levothyroxine [Synthroid] 50 mcg PO DAILY 11/19/18 02/24/20 History lorazepam [Ativan] 0.5 mg PO TID PRN 11/19/18 02/24/20 History ondansetron HCl 4 mg PO TID PRN 11/19/18 02/24/20 History rizatriptan [Maxalt] 10 mg PO UD PRN 11/19/18 02/24/20 History dextroamphetamine-amphetamine 20 mg PO QAM 02/24/20 02/24/20 History [Adderall] lithium carbonate 300 mg PO TID 02/24/20 02/24/20 History pregabalin [Lyrica] 100 mg PO TID 02/24/20 02/24/20 History quetiapine [Seroquel] 50 mg PO DAILY PRN 02/24/20 02/24/20 History Patient History Medical History Asthma Attention deficit disorder Chronic neck pain Tardive dyskinesia Surgical History History of cervical spinal surgery Status post tubal ligation Social History Smoking Status: Former smoker Smoking End Date: 2007; Hx Alcohol Use: No Hx Substance Use: No Preferred Language: Upper Sorbian Communication Ability: Effective Visual Impairment: No Limitations Hearing Ability: Normal 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 Does not appear in acute distress. HEAD/FACE: Normocephalic and atraumatic. EYES: No drainage or conjunctival injection. RESPIRATORY: Patient with unlabored breathing. No signs of respiratory distress. CHEST/AXILLA: Chest movement symmetrical. No deformities noted. BACK: Moves without difficulty. There is diffuse hyperalgesia along the left mid thoracic to lower lumbar region. Mild myofascial spasm without trigger points, particularly along the paravertebral musculature. SKIN: [place], warm and dry. No rash noted. MS/EXTREMITY: Moving extremities appropriately. NEURO: Alert and appears oriented. +tardive dyskinesia. Cranial Nerves are grossly intact. PSYCH: Alert, pleasant, affect is calm Results ([facility]) Diagnostic Review MRI Findings: LUMBAR SPINE MRI HISTORY: severe left sciatica TECHNIQUE: Multiplanar multisequence MRI of the lumbar spine was performed without the use of contrast. COMPARISON: None. FINDINGS: For the purpose of the report the L5-S1 disc space will be located on axial image 27 of 30. No fracture or subluxation within the lumbar spine. Disc spaces within the lumbar spine are preserved. The conus terminates at the T12-L1 disc space. Paraspinal soft tissues are unremarkable. No disc herniations. L1-L2: No significant central canal or neural foraminal narrowing. L2-L3: No significant central canal or neural foraminal narrowing. L3-L4: No significant central canal or neural foraminal narrowing. L4-L5: No significant central canal or neural foraminal narrowing. L5-S1: No significant central canal or neural foraminal narrowing. IMPRESSION: 1. No disc herniations. No significant central canal or neural foraminal narrowing. 2. No fracture or subluxation within the lumbar spine. Electronically signed by: Pancho Lopez M.D. 11/19/2018 3:[address] Findings: CT OF THE ABDOMEN AND PELVIS WITHOUT CONTRAST CLINICAL HISTORY: Left flank pain. COMPARISON STUDY: CT of the abdomen and pelvis June 19, 2018. TECHNIQUE: Axial images of the abdomen and pelvis were obtained without IV contrast. Images were reviewed in the axial, sagittal, and coronal planes. Automated exposure control was utilized for the study. A dose lowering technique was utilized adhering to the principles of ALARA. FINDINGS: Lung bases are unremarkable. No renal, ureteral or bladder calculi are present. Pelvic calcifications likely reflect phleboliths. There is no hydronephrosis or hydroureter. No perinephric infiltration. Evaluation of the remainder of the abdomen and pelvis suboptimal on this unenhanced exam. The liver, spleen, adrenal glands and pancreas are unremarkable. There is no biliary or pancreatic ductal dilatation. The appendix is normal. There is no evidence for a bowel obstruction. A moderate amount stool within the colon is noted. There is no lymphadenopathy or ascites. There are no suspicious osseous lesions. The ovaries are not enlarged. Apparent mild infiltration of the labia is unchanged. This is of doubtful significance. IMPRESSION: 1. No urinary calculi or hydronephrosis. 2. No acute process within the abdomen or pelvis on unenhanced exam. 3. No bowel obstruction. Normal appendix. 4. Moderate amount of stool within the colon. ACT 112: Negative or not required by law. Electronically signed by: Brendan Lux M.D. 02/24/2020 8:39 PM Other Findings: ULTRASOUND RIGHT UPPER QUADRANT ABDOMEN CLINICAL HISTORY: Vomiting. COMPARISON STUDY: Abdominal CT dated 02/24/2020. TECHNIQUE: Real-time, grayscale, and color flow sonography of the right upper quadrant of the abdomen was performed. Images are reviewed in the transverse and longitudinal planes. FINDINGS: Liver: The liver is normal in size and echotexture. There is no intrahepatic biliary ductal dilatation. The main portal vein is patent. Gallbladder: The gallbladder is normal in appearance. No gallstones are identified. There is no gallbladder wall thickening or pericholecystic fluid. A sonographic Tubbs's sign is reportedly absent. The common bile duct measures up to 0.4 cm in diameter. Pancreas: Visualized portions of the pancreatic head and body are normal in appearance. The splenic vein is patent. Right kidney: Survey images of the right kidney demonstrate normal size and echotexture. There is no hydronephrosis. Ascites: None. IMPRESSION: Unremarkable sonographic assessment of the right upper quadrant. No gallstones are identified. ACT 112: Negative or not required by law. Electronically signed by: Lonnie Paige M.D. 02/25/2020 7:41 AM
[2020-02-27] MEDS ORDERED: LIDOCAINE 5% 1 PATCH TD SCH (09:15)
[2020-02-27] MEDS: PREGABALIN 100 MG CAP PO SCH ×2 (09:34→14:00)
[2020-02-27] MEDS: AMPHETAMINE ASP/SULF/DEXTRAMPH 20 MG TAB PO SCH (09:34)
[2020-02-27] MEDS: POLYETHYLENE (MIRALAX) 17 GM PACK PO SCH ×2 (09:34→12:43)
[2020-02-27] MEDS: BACLOFEN 10 MG TAB PO SCH ×2 (09:36→14:00)
[2020-02-27] MEDS: AMPHETAMINE ASP/SULF/DEXTRAMPH 10 MG TAB PO SCH (12:42)
--- NOTE | 2020-02-28 18:47 | Discharge Summary ---
Date of Service February 28, 2020 Admission HPI Per Admitting Provider History obtained from patient, family, and records. Medical history significant for mood disorder, hypothyroidism, unspecified convulsions, tardive dyskinesia, hyperlipidemia as per records, chronic anemia (baseline globin 10-11), past tobacco abuse. Last confinement 2012 under [facility] for elective neck surgery. 2 weeks history of achy right upper quadrant pain symptoms associated with emesis worse with meals, No chest pain, no S OB. No fever, no chills. PCP recommended ER consultation given concern for cholecystitis but patient held off. Intermittent discomfort the last 2 weeks. 2 days ago patient noted aching left flank pain symptoms. No recollection of recent trauma. Persistent right upper quadrant pain. Patient brought to ER for evaluation by . Medical History as above Surgical History : Left shoulder surgery, neck surgery, hysteroscopy, BTL, nerve decompression, oophorectomy Family History : Heart disease, mood disorder, alcoholism Personal/Social history : Past tobacco abuse, no EtOH intake, homemaker Principal Diagnosis ABDOMINAL PAIN NAUSEA /VOMITING -POSSIBLE VIRAL GASTROENTERITIS SYMPTOMS HAS RESOLVED CHRONIC CONSTIPATION Discharge Exam Constitutional WD/WN, vitals as above Eyes PERRL, conjunctivae normal, anicteric sclerae ENMT external ear and nose normal, oropharynx normal Neck trachea midline, no thyromegaly Respiratory normal respiratory effort, lungs clear to auscultation Cardiovascular RRR, no murmur, no edema Gastrointestinal (Abdomen) normal bowel sounds, soft, nontender, no hepatosplenomegaly Inspection/Auscultation: normal bowel sounds Percussion/Palpation: + abdomen tender (left flank pain ) and abdomen soft Musculoskeletal no cyanosis or clubbing, extremities motor strength 5/5 Neurologic PERRL, EOMI, accommodation nl, no face palsy, no dysarthria Psychiatric A+Ox3, euthymic affect Discharge Data Allergies Allergy/AdvReac Type Severity Reaction Status Date / Time No Known Allergies Allergy Verified 02/24/20 20:45 Consultations 02/25/20 00:13 ED Decision to Admit Stat 02/25/20 01:21 Consult General Surgery Routine 02/26/20 16:02 Consult Pain Management Routine Ordered Studies 02/24/20 19:48 CT abd pelvis wo con Stat US gallbladder Urgent Hospital Course (1) Abdominal pain: hx of chronic nausea /vomiting for months -cyclic vomiting syndrome worsening of symptoms acutely for past few days -possible viral gastroenteritis GI symptoms has resolved tolerating diet CT abdomen /pelvis : no acute pathology chronic Constipation : possible contributed to abdominal pain ordered for bowel regimen limit narcotic pain meds appreciate input from Pain management team Left flank pain : no evidence of kidney stone on CT abdomen possible muskuloskeletal cold compression increase activity as tolerated bowel regimen as above Total Time Total Time Spent Total Time Spent (In Minutes): 35 Total Time Includes: Examination of the Patient, Discharge Planning and Medication Reconciliation Discharge Plan Discharge Items Patient Disposition: Home - Self-Care Reason For Visit: ABD PAIN Discharge Diagnosis: ABDOMINAL PAIN NAUSEA /VOMITING -POSSIBLE VIRAL GASTROENTERITIS SYMPTOMS HAS RESOLVED CHRONIC CONSTIPATION Activity: Resume your previous activity Non-emergency contact: Primary Care Provider Call non-emergency contact if: you have any medication questions Follow-up/Referrals: Ayla Fuentes DO [Physician] - (Follow up at pain management clinic as needed for pain ) Bean Rivera M.D. [Primary Care Provider] - (Date & Time 03/01/2020 11:20 AM Provider Bean Rivera MD [facility] ) Diet: Regular Addtl Attending Provider Instructions: PLEASE TAKE MIRALAX 1 HEAPED TABLE SPOON IN 8 OZ OF BEVERAGE EVERY DAY TO PREVENT CONSTIPATION DRINK PLENTY OF FLUID ADD FRUITS AND VEGETABLES IN YOUR DIET Pending Studies at Discharge: No Stand-Alone Forms: My [employer], Smoking Cessation Medications and DC Order Prescriptions: Continued quetiapine 200 mg tablet 200 mg PO QPM RF: 0 baclofen 10 mg Tablet 10 mg PO TID PRN (Reason: Muscle Pain) RF: 0 dextroamphetamine-amphetamine [Adderall] 10 mg tablet 10 mg PO BID RF: 0 ibuprofen 600 mg Tablet 600 mg PO TID PRN (Reason: Pain) RF: 0 ondansetron HCl 4 mg Tablet 4 mg PO TID PRN (Reason: Nausea) RF: 0 rizatriptan [Maxalt] 10 mg Tablet 10 mg PO UD PRN (Reason: Migraine Headache) RF: 0 levothyroxine [Synthroid] 50 mcg Tablet 50 mcg PO DAILY RF: 0 lorazepam [Ativan] 1 mg tablet 0.5 mg PO TID PRN (Reason: Anxiety) RF: 0 azelastine 137 mcg (0.1 %) aerosol,spray 1 spray intranasal BID RF: 0 albuterol sulfate 90 mcg/actuation Hfa Aerosol Inhaler 2 puff INHALATION Q4 PRN (Reason: Shortness Of Breath Or Wheezing) RF: 0 levocetirizine [Xyzal] 5 mg tablet 5 mg PO QPM RF: 0 Austedo 12 mg tablet 12 mg PO BID RF: 0 lithium carbonate 300 mg capsule 300 mg PO TID RF: 0 dextroamphetamine-amphetamine [Adderall] 20 mg tablet 20 mg PO QAM RF: 0 quetiapine [Seroquel] 50 mg tablet 50 mg PO DAILY PRN (Reason: Agitation) RF: 0 pregabalin [Lyrica] 100 mg Capsule 100 mg PO TID RF: 0 Discharge Orders: Discharge Order (Routine); Ordered 02/27/20 Ordered By: Julianna Shukla/Other Patient Handouts: Abdominal Pain Admission Data Admit Date/Time: 02/25/20 00:33 Attending Provider: Julianna Jennings Admit Provider: Bean Zimmerman Primary Care Provider: Bean Rivera Other Providers: Bean Zimmerman ; Manan Ybarra Jennifer L Other Interventions: Discharge Summary Assessment (RN) Last Done: 02/27/20 13:40
== END 2020-02-27 15:50 | disposition home or self-care (01) ==
LOC: 3W 19:22 → ED 19:22 → 3W 02-25 01:04